=== PATIENT | female | born 1985 ===

== ENCOUNTER 2023-12-17 22:01 | Emergency (ER) | payer MEDICAID, SELFPAY ==
[2023-12-17 22:09] VITALS: BP 114/76; PULSE 90; RESP 16; TEMP 36.5; O2SAT 95; BMI 31.2
--- NOTE | 2023-12-17 22:16 | ED_ITS ---
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 was dx with bowel obstruction. pain in abd. 7/ 10 lower abd. 38-year-old woman presenting to the emergency department with concern of abdominal pain. Sounds to be cramping abdominal pain. This has been going on over the last for 5 days. It sounds like 4 days ago was seen in [facility] Emergency Department and initially left after waiting in the waiting room. Had been trying to treat with MiraLax. Following a very large bowel movement and severe cramping and near syncope was returned via ems to [facility] where CT imaging was done but she is unsure of result. Was discharged home with what sounds like a diagnosis of constipation. Two days ago drove herself to [place] following severe increase in abdominal pain. Received CT imaging and ultrasound. She says was noted to have had a very recently ruptured ovarian cyst but more significant findings apparently of small-bowel obstruction and recommended for admission. After 12 hour wait in the emergency department and persons who were to come collect her dog did not which had been waiting in the car, she left hoping that maybe it would spontaneously resolve. Presents to this emergency department with increase of pain over the last day again. She feels generally bloated. Yesterday had some liquidy stools. Lalitha has passed gas maybe half an hour prior to presentation the Emergency Department. Last vomited a couple of days ago. Did manage to maintained some oral intake of some liquid yogurt about 30 minutes prior to arrival in the emergency department. She does note during evaluation at [place] 2 days ago had rather elevated white count and was given what sounds like IV antibiotics there. She has not had a fever. Only abdominal procedures are 3 C-sections. Currently homeless and had been staying with her cousin briefly in the [facility]. Has been bouncing around she says. <Ignacio Isaac MD - Last Filed: 12/18/23 01:34> Related Data Home medications: Previous Rx's ?Medication ?Instructions ?Recorded amoxicillin 875 mg-potassium 1 tab PO BID #10 tabs 12/18/23 clavulanate 125 mg tablet dicyclomine 20 mg tablet 20 mg PO QID PRN abdominal pain 12/18/23 #20 tabs potassium chloride 20 mEq 20 meq PO DAILY #10 tabs 12/18/23 tablet,extended release(part/cryst) <Ignacio Isaac MD - Last Filed: 12/18/23 01:34> Allergies/adverse reactions: Allergies Allergy/AdvReac Type Severity Reaction Status Date / Time No Known Drug Allergies Allergy Verified 12/17/23 22:13 <Ignacio Isaac MD - Last Filed: 12/18/23 01:34> Review of Systems Status of ROS: Reports: 6 or more systems reviewed and unremarkable except as noted in History and below <Ignacio Isaac MD - Last Filed: 12/18/23 01:34> Exam Narrative: Exam Narrative: Carefully casually groomed. Pleasantly talkative. Small tattoos on extremities. Skin is warm and dry otherwise. Abdomen is full soft. No peritoneal signs. Faint bowel sounds are present. She is most sore to palpation the right lower abdomen. No masses appreciated. Breathing easily with clear lungs. Heart in elevated rate and rhythm. Distant. <Igancio Isaac MD - Last Filed: 12/18/23 01:34> Const: Vital Signs, click to edit/add: Vital Signs - 24 hr 12/17/23 22:09 12/17/23 23:37 12/18/23 00:01 Temperature 97.7 F Pulse Rate 101 H 99 Pulse Rate [Pulse Oximeter] 90 Respiratory Rate 16 16 16 Blood Pressure 119/70 120/72 Blood Pressure [Ri ght Upper Arm] 114/76 Pulse Oximetry 95 99 99 Oxygen Delivery Me thod Room Air Room Air Room Air <Ignacio Isaac MD - Last Filed: 12/18/23 01:34> Vital Signs, click to edit/add: Vital Signs - 24 hr 12/17/23 22:09 12/17/23 23:37 12/18/23 00:01 Temperature 97.7 F Pulse Rate 101 H 99 Pulse Rate [Pulse Oximeter] 90 Respiratory Rate 16 16 16 Blood Pressure 119/70 120/72 Blood Pressure [Ri ght Upper Arm] 114/76 Pulse Oximetry 95 99 99 Oxygen Delivery Me thod Room Air Room Air Room Air <Ronald Steel MD - Last Filed: 12/18/23 02:38> Documenting provider has reviewed patient's vital signs: yes <Ignacio Isaac MD - Last Filed: 12/18/23 01:34> Course Reevaluation(s) Additional Reevaluation(s): 1:32 a.m. 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 Patient left AMA early on December 15. 2:09 a.m. reviewed radiology interpretation CT scan of the abdomen and pelvis which shows some layering sludge in the gallbladder but no evidence for obstruction or enteritis. Given normal white blood cell count today with normal lipase and normal hepatic panel, previously seen ileocolitis appears to be resolved although CRP is still a little elevated. Patient is able to tolerate oral intake, is passing gas in the department, in stable for discharge after potassium replacement is completed. She does have numerous liver nodules which will need outpatient follow-up. 2:34 a.m. patient recheck, tolerating oral intake and passing gas in the emergency department. She is agreeable to discharge with Bentyl to help with abdominal pain and cramping, liquid diet. She has Colace at home that she will start taking and will also start potassium replacement, follow-up with primary care. Given still elevated CRP and findings of ileocolitis on prior CT which seems to be improved either just with time with antibiotics, patient will be started on short course of Augmentin as well. <Ronald Steel MD - Last Filed: 12/18/23 02:38> Vital Signs Vital signs: Initial Vital Signs Temperature 97.7 F 12/17/23 22:09 Temperature Source Temporal Artery Scan 12/17/23 22:09 Pulse Rate 90 12/17/23 22:09 Respiratory Rate 16 12/17/23 22:09 Blood Pressure 114/76 12/17/23 22:09 Blood Pressure Mean 88 12/17/23 22:09 Blood Pressure Position Sitting 12/17/23 22:09 Pulse Oximetry 95 12/17/23 22:09 Oxygen Delivery Method Room Air 12/17/23 22:09 Vital Signs Temperature 97.7 F 12/17/23 22:09 Pulse Rate 90 12/17/23 22:09 Respiratory Rate 16 12/17/23 22:09 Blood Pressure 114/76 12/17/23 22:09 Pulse Oximetry 95 12/17/23 22:09 Oxygen Delivery Method Room Air 12/17/23 22:09 Temperature 97.7 F 12/17/23 22:09 Pulse Rate 99 12/18/23 00:01 Respiratory Rate 16 12/18/23 00:01 Blood Pressure 120/72 12/18/23 00:01 Pulse Oximetry 99 12/18/23 00:01 Oxygen Delivery Method Room Air 12/18/23 00:01 <Ignacio Isaac MD - Last Filed: 12/18/23 01:34> Initial Vital Signs Temperature 97.7 F 12/17/23 22:09 Temperature Source Temporal Artery Scan 12/17/23 22:09 Pulse Rate 90 12/17/23 22:09 Respiratory Rate 16 12/17/23 22:09 Blood Pressure 114/76 12/17/23 22:09 Blood Pressure Mean 88 12/17/23 22:09 Blood Pressure Position Sitting 12/17/23 22:09 Pulse Oximetry 95 12/17/23 22:09 Oxygen Delivery Method Room Air 12/17/23 22:09 Vital Signs Temperature 97.7 F 12/17/23 22:09 Pulse Rate 90 12/17/23 22:09 Respiratory Rate 16 12/17/23 22:09 Blood Pressure 114/76 12/17/23 22:09 Pulse Oximetry 95 12/17/23 22:09 Oxygen Delivery Method Room Air 12/17/23 22:09 Temperature 97.7 F 12/17/23 22:09 Pulse Rate 99 12/18/23 00:01 Respiratory Rate 16 12/18/23 00:01 Blood Pressure 120/72 12/18/23 00:01 Pulse Oximetry 99 12/18/23 00:01 Oxygen Delivery Method Room Air 12/18/23 00:01 <Ronald Steel MD - Last Filed: 12/18/23 02:38> Medications Administered Medications: Generic Name Dose Route Start Last Admin Trade Name Freq PRN Reason Stop Dose Admin Potassium Chloride 10 meq in 100 mls @ 100 mls/hr 12/18/23 01:15 12/18/23 01:38 Potassium Chloride IVPB 12/18/23 03:44 100 mls/hr Q90M LANEY Administration Discontinued Medications Generic Name Dose Route Start Last Admin Trade Name Freq PRN Reason Stop Dose Admin Sodium Chloride 1,000 mls @ 1,000 mls/hr 12/17/23 22:43 12/18/23 00:29 0.9 % Sodium Chloride 1000 Ml IV 12/17/23 23:42 Infused .Q1H ONE Infusion Lactated Ringer's 1,000 mls @ 1,000 mls/hr 12/18/23 01:08 12/18/23 01:38 Lactated Ringers 1000 Ml IV 12/18/23 02:07 1,000 mls/hr .Q1H ONE Administration Ketorolac Tromethamine 30 mg 12/18/23 01:39 12/18/23 01:59 Ketorolac 30 Mg/Ml Inj IVP 12/18/23 01:40 30 mg ONCE ONE Administration <Ignacio Isaac MD - Last Filed: 12/18/23 01:34> Generic Name Dose Route Start Last Admin Trade Name Kentonq PRN Reason Stop Dose Admin Potassium Chloride 10 meq in 100 mls @ 100 mls/hr 12/18/23 01:15 12/18/23 01:38 Potassium Chloride IVPB 12/18/23 03:44 100 mls/hr Q90M LANEY Administration Discontinued Medications Generic Name Dose Route Start Last Admin Trade Name Kentonq PRN Reason Stop Dose Admin Sodium Chloride 1,000 mls @ 1,000 mls/hr 12/17/23 22:43 12/18/23 00:29 0.9 % Sodium Chloride 1000 Ml IV 12/17/23 23:42 Infused .Q1H ONE Infusion Lactated Ringer's 1,000 mls @ 1,000 mls/hr 12/18/23 01:08 12/18/23 01:38 Lactated Ringers 1000 Ml IV 12/18/23 02:07 1,000 mls/hr .Q1H ONE Administration Ketorolac Tromethamine 30 mg 12/18/23 01:39 07/23/24 01:59 Ketorolac 30 Mg/Ml Inj IVP 12/18/23 01:40 30 mg ONCE ONE Administration <Ronald Steel MD - Last Filed: 12/18/23 02:38> Medical Decision Making MDM Narrative Medical decision making narrative: Would like to get information from recent evaluations. Sounds as though per description of diagnoses has been constipated progressing to a small-bowel or partial small-bowel obstruction. Incidental finding of elevated white count per her report. Given what she is saying I wonder if possibly hemorrhagic ovarian cyst rupture exacerbated underlying pain as well. Would like to repeat labs and at least do two view abdomen. Initiate IV IV fluids. Try to obtain records. Abdominal x-ray reviewed by me with dilated loops of small bowel and air-fluid levels. Large amount of stool in the right colon. Looks like small-bowel obstruction. Reports recent bowel obstruction, increasing abdominal pain. COMPARISON: None available. TECHNIQUE: Abdomen 2 view. FINDINGS: There are a few dilated small bowel loops in the left abdomen measuring up to 4.2 cm in diameter. Findings are suspicious for obstruction. Large amount of stool in the ascending colon. No free air under the hemidiaphragms. The lung bases are clear. The bones are unremarkable. IMPRESSION: Dilated small bowel loops in the left abdomen suspicious for obstruction. Has labs come back we see a hemoglobin of 9.5. Discussing this with Lalitha she does note that she has been chronically anemic; ever since she had children she says. White count per her report has now normalized CRP is markedly elevated at 23. I have managed to obtain imaging records dated 12/15/2019 from the [place] emergency department. Impression is fluid-filled loops of small bowel with transition point deep in the anterior pelvis. There were some distal small bowel loops with mild wall thickening with concern of potentially infectious or inflammatory etiology. Distal small bowel loops are demonstrating wall thickening the level of the ile ocecal valve. Colonic ileus probable as well. Collapsing right adnexal cyst with increase in pelvic free fluid. Also was noted to have multiple new low- attenuation lesions in the liver. Also had an ultrasound both transabdominal and transvaginal done which showed absence of ovarian torsion and trace. Adnexa mildly complex free fluid possibly secondary to blood products from hemorrhagic cyst/follicle. Will be returning for noncontrast CT imaging since this was just done however with the noted suspicion of infection or inflammatory changes I think warrants at least noncontrast CT imaging the abdomen pelvis. I would anticipate admission for further bowel rest. Images pending. Replacing potassium Will be handing off at change of shift. <Ignacio Isaac MD - Last Filed: 12/18/23 01:34> Medical Records Medical records reviewed: Yes I reviewed the patient's medical records <Ignacio Isaac MD - Last Filed: 12/18/23 01:34> Lab Data Lab results reviewed: Yes I reviewed the patient's lab results <Ignacio Isaac MD - Last Filed: 12/18/23 01:34> Labs: Lab Results 12/17/23 12/18/23 12/18/23 Range/Units 22:59 00:08 00:10 WBC 5.65 (4.50-11.00) K/uL RBC 3.40 L (4.00-5.20) m/uL Hgb 9.5 L (12.0-16.0) gm/dL Hct 29.0 L (33.0-51.0) % MCV 85 (80-100) fL MCH 28 (26-34) pg MCHC 33 (32-36) gm/dL RDW Coeff of Nakia 13.7 (11.5-15.5) % Plt Count 189 (140-440) K/uL Neut % (Auto) 57.5 (42.0-72.0) % Lymph % (Auto) 24.8 (20-44) % [place] % (Auto) 13.6 H (0.0-11.0) % Eos % (Auto) 3.2 (0.0-7.0) % Baso % (Auto) 0.2 (0.0-3.0) % Neut # (Auto) 3.25 (1.7-7.0) K/uL Lymph # (Auto) 1.40 (0.90-2.90) K/uL [place] # (Auto) 0.80 (0.00-0.90) K/UL Eos # (Auto) 0.18 (0.00-0.50) K/uL Baso # (Auto) 0.01 (0.00-0.30) K/uL Abs Immat Gran (auto) 0.04 (0.00-0.30) K/uL Imm/Tot Granulo (auto) 0.7 % Sodium 137 (135-149) mmol/L Potassium 2.8 L* (3.6-5.1) mmol/L Chloride 106 (96-114) mmol/L Carbon Dioxide 25 (20-32) mmol/L Anion Gap 6 L (7-15) mEq/L BUN 5 (5-24) mg/dL Creatinine 0.6 (0.5-1.5) mg/dL Estimated Creat Clear 129.50 Estimated GFR 118 ml/min Glucose 100 (60-115) mg/dL Calcium 7.9 L (8.4-10.6) mg/dL Magnesium 2.2 (1.5-2.6) mg/dL Total Bilirubin 0.4 (0.1-1.5) mg/dL Direct Bilirubin 0.3 (0.0-0.5) mg/dL AST 34 (12-35) U/L ALT 34 (4-35) U/L Alkaline Phosphatase 107 (40-150) U/L C-Reactive Protein 23.0 H (0.5-1.0) mg/dL Total Protein 6.3 (6.0-8.3) g/dL Albumin 3.2 L (3.3-5.0) g/dL Lipase 59 (23-300) U/L Urine Color Yellow (Yellow) Urine Appearance Clear (Clear) Urine pH 7.0 (5.0-8.5) Ur Specific [place] 1.010 (1.000-1.030) Urine Protein Negative (Negative) Urine Glucose (UA) Negative (Negative) Urine Ketones Negative (Negative) Urine Blood Trace-intact A (Negative) Urine Nitrite Negative (Negative) Urine Bilirubin Negative (Negative) Urine Urobilinogen 0.2 (0.2-1.0) Ur Leukocyte Esterase Negative (Negative) Urine RBC 0-2 (0-2) Urine WBC 0-2 (0-5) Ur Squamous Epith Cells Few (None-Few) Urine Bacteria None (None) Lab Acknowledgement Test Added <Ignacio Isaac MD - Last Filed: 12/18/23 01:34> Lab Results 12/17/23 12/18/23 12/18/23 Range/Units 22:59 00:08 00:10 WBC 5.65 (4.50-11.00) K/uL RBC 3.40 L (4.00-5.20) m/uL Hgb 9.5 L (12.0-16.0) gm/dL Hct 29.0 L (33.0-51.0) % MCV 85 (80-100) fL MCH 28 (26-34) pg MCHC 33 (32-36) gm/dL RDW Coeff of Nakia 13.7 (11.5-15.5) % Plt Count 189 (140-440) K/uL Neut % (Auto) 57.5 (42.0-72.0) % Lymph % (Auto) 24.8 (20-44) % [place] % (Auto) 13.6 H (0.0-11.0) % Eos % (Auto) 3.2 (0.0-7.0) % Baso % (Auto) 0.2 (0.0-3.0) % Neut # (Auto) 3.25 (1.7-7.0) K/uL Lymph # (Auto) 1.40 (0.90-2.90) K/uL [place] # (Auto) 0.80 (0.00-0.90) K/UL Eos # (Auto) 0.18 (0.00-0.50) K/uL Baso # (Auto) 0.01 (0.00-0.30) K/uL Abs Immat Gran (auto) 0.04 (0.00-0.30) K/uL Imm/Tot Granulo (auto) 0.7 % Sodium 137 (135-149) mmol/L Potassium 2.8 L* (3.6-5.1) mmol/L Chloride 106 (96-114) mmol/L Carbon Dioxide 25 (20-32) mmol/L Anion Gap 6 L (7-15) mEq/L BUN 5 (5-24) mg/dL Creatinine 0.6 (0.5-1.5) mg/dL Estimated Creat Clear 129.50 Estimated GFR 118 ml/min Glucose 100 (60-115) mg/dL Calcium 7.9 L (8.4-10.6) mg/dL Magnesium 2.2 (1.5-2.6) mg/dL Total Bilirubin 0.4 (0.1-1.5) mg/dL Direct Bilirubin 0.3 (0.0-0.5) mg/dL AST 34 (12-35) U/L ALT 34 (4-35) U/L Alkaline Phosphatase 107 (40-150) U/L C-Reactive Protein 23.0 H (0.5-1.0) mg/dL Total Protein 6.3 (6.0-8.3) g/dL Albumin 3.2 L (3.3-5.0) g/dL Lipase 59 (23-300) U/L Urine Color Yellow (Yellow) Urine Appearance Clear (Clear) Urine pH 7.0 (5.0-8.5) Ur Specific [place] 1.010 (1.000-1.030) Urine Protein Negative (Negative) Urine Glucose (UA) Negative (Negative) Urine Ketones Negative (Negative) Urine Blood Trace-intact A (Negative) Urine Nitrite Negative (Negative) Urine Bilirubin Negative (Negative) Urine Urobilinogen 0.2 (0.2-1.0) Ur Leukocyte Esterase Negative (Negative) Urine RBC 0-2 (0-2) Urine WBC 0-2 (0-5) Ur Squamous Epith Cells Few (None-Few) Urine Bacteria None (None) Lab Acknowledgement Test Added <Ronald Steel MD - Last Filed: 12/18/23 02:38> Discharge Plan Discharge Clinical Impression: Hypokalemia, Liver lesion, Abdominal pain, Ileocolitis <Ignacio Isaac MD - Last Filed: 12/18/23 01:34> Patient Disposition: Home, Self-Care <Ignacio Isaac MD - Last Filed: 12/18/23 01:34> Condition: Stable <Ignacio Isaac MD - Last Filed: 12/18/23 01:34> Instructions: Abdominal Pain (ED) <Ignacio Isaac MD - Last Filed: 12/18/23 01:34> Additional Instructions: Liquid diet for 24 hours Follow-up with your primary care provider for further imaging for liver nodules <Ignacio Isaac MD - Last Filed: 12/18/23 01:34> Activity Level: Activity as Tolerated <Ignacio Isaac MD - Last Filed: 12/18/23 01:34> Activity as Tolerated <Ronald Steel MD - Last Filed: 12/18/23 02:38> Discharge Diet: Full Liquid <Ignacio Isaac MD - Last Filed: 12/18/23 01:34> Full Liquid <Ronald Steel MD - Last Filed: 12/18/23 02:38> Prescriptions: New dicyclomine 20 mg tablet 20 mg PO QID PRN (Reason: abdominal pain) Qty: 20 0RF potassium chloride 20 mEq tablet,ER particles/crystals 20 meq PO DAILY Qty: 10 0RF amoxicillin-pot clavulanate 875-125 mg tablet 1 tab PO BID Qty: 10 0RF <Ignacio Isaac MD - Last Filed: 12/18/23 01:34> Follow Up/Referrals: Provider,Not a Local [Primary Care Provider] - <Ignacio Isaac MD - Last Filed: 12/18/23 01:34> Stand Alone Forms: MyHealth Info Instructions <Ignacio Isaac MD - Last Filed: 12/18/23 01:34>
--- NOTE | 2023-12-17 22:43 | CRLHL7_ITS ---
For Patients: As a result of the Century Cures Act, medical imaging exams and procedure reports are released immediately into your electronic medical record. You may view this report before your referring provider. If you have questions, please contact your health care provider. INDICATION: Reports recent bowel obstruction, increasing abdominal pain. COMPARISON: None available. TECHNIQUE: Abdomen 2 view. FINDINGS: There are a few dilated small bowel loops in the left abdomen measuring up to 4.2 cm in diameter. Findings are suspicious for obstruction. Large amount of stool in the ascending colon. No free air under the hemidiaphragms. The lung bases are clear. The bones are unremarkable. IMPRESSION: Dilated small bowel loops in the left abdomen suspicious for obstruction. Dictated by Nancy Patel MD @ 12/17/2023 11:30:16 PM (Electronically Signed)
[2023-12-17 23:15] LABS: Basophils Absolute Auto 0.01 K/uL (0.00-0.30); Basophils Percent Auto 0.2 % (0.0-3.0); Eosinophils Absolute Auto 0.18 K/uL (0.00-0.50); Eosinophils Percent Auto 3.2 % (0.0-7.0); Hemoglobin* 9.5 gm/dL (12.0-16.0); Immature Granulocytes Abs Auto 0.04 K/uL (0.00-0.30); Immature Granulocytes Pct Auto 0.7 %; Lymphocytes Percent Auto 24.8 % (20-44); Mean Corpuscular HGB Conc 33 gm/dL (32-36); Mean Corpuscular Hemoglobin 28 pg (26-34); Mean Corpuscular Volume 85 fL (80-100); Monocytes Percent Auto 13.6 % (0.0-11.0); Neutrophils Absolute Auto 3.25 K/uL (1.7-7.0); Neutrophils Percent Auto 57.5 % (42.0-72.0); Platelet Count* 189 K/uL (140-440); RDW Coefficient of Variation % 13.7 % (11.5-15.5); White Blood Count* 5.65 K/uL (4.50-11.00)
[2023-12-17 23:16] LABS: Slide Review Reflex No
[2023-12-17 23:28] LABS: Chloride* 106 mmol/L (96-114)
[2023-12-17 23:29] LABS: Albumin* 3.2 g/dL (3.3-5.0); Sodium* 137 mmol/L (135-149)
[2023-12-17 23:31] LABS: Creatinine* 0.6 mg/dL (0.5-1.5); Estimated Glomerular Filt Rate 118 ml/min
[2023-12-17 23:32] LABS: Alkaline Phosphatase* 107 U/L (40-150); Anion Gap 6 mEq/L (7-15); Aspartate Amino Transferase* 34 U/L (12-35); Bilirubin Direct* 0.3 mg/dL (0.0-0.5); Bilirubin Total* 0.4 mg/dL (0.1-1.5); Blood Urea Nitrogen* 5 mg/dL (5-24); Calcium* 7.9 mg/dL (8.4-10.6); Carbon Dioxide* 25 mmol/L (20-32); Glucose* 100 mg/dL (60-115); Lipase* 59 U/L (23-300); Total Protein* 6.3 g/dL (6.0-8.3)
[2023-12-17] MEDS: 0.9 % SODIUM CHLORIDE 1000 ml 1,000 ML IV (23:32)
[2023-12-17 23:33] LABS: Alanine Aminotransferase* 34 U/L (4-35); Potassium* 2.8 mmol/L (3.6-5.1)
[2023-12-17 23:37] VITALS: BP 119/70; PULSE 101; RESP 16; O2SAT 99
[2023-12-18] VITALS (7 sets, daily range): BP systolic 109–120; BP diastolic 63–72; PULSE 85–100; RESP 14–16; O2SAT 99–100
--- NOTE | 2023-12-18 | CRLHL7_ITS ---
For Patients: As a result of the Century Cures Act, medical imaging exams and procedure reports are released immediately into your electronic medical record. You may view this report before your referring provider. If you have questions, please contact your health care provider. INDICATION: Abdominal distension and pain TECHNIQUE: CT Abdomen and pelvis without i.v. contrast. Coronal and sagittal reformats were obtained. COMPARISON: 12/17/2023 FINDINGS: Lower chest: Mild right lower lobe discoid atelectasis is present. Liver: Several hypodense liver lesions are present measuring up to 12 mm. These are incompletely characterized without the use of intravenous contrast. Spleen: Unremarkable. Pancreas: Unremarkable. Gallbladder: Faint layering densities are present within the gallbladder which may be due to sludge or noncalcified gallstones. Kidney: Unremarkable. No kidney or ureteral stones or obstruction seen. Adrenal: Unremarkable. Bowel: Mild gaseous distention of the sigmoid colon is seen. The appendix is normal in appearance and size. Vascular: Unremarkable. Lymph: Unremarkable. Peritoneum: Unremarkable. No pneumoperitoneum is seen. Trace amount of ascites is present and is likely physiologic in origin. Pelvis: Unremarkable. Soft tissue: Unremarkable. Bone: Unremarkable for age. IMPRESSION: 1. Faint layering densities are present within the gallbladder which may be due to sludge or noncalcified gallstones. Dictated by Cam Garcia MD @ 12/18/2023 2:02:45 AM Please note that all CT scans at this facility use dose modulation, iterative reconstruction, and/or weight-based dosing when appropriate to reduce radiation dose to as low as reasonably achievable. Dictated by: Cam Garcia MD @ 12/18/2023 02:02:50 (Electronically Signed)
[2023-12-18 00:29] LABS: Appearance Urine Clear (Clear); Bilirubin Urine Negative (Negative); Blood Urine Trace-intact (Negative); Color Urine Yellow (Yellow); Glucose Urine Negative (Negative); Ketones Urine Negative (Negative); Leukocyte Esterase Urine Negative (Negative); Nitrite Urine Negative (Negative); Protein Urine Negative (Negative); Urobilinogen Urine 0.2 (0.2-1.0)
[2023-12-18 00:32] LABS: Magnesium* 2.2 mg/dL (1.5-2.6)
[2023-12-18 00:36] LABS: RBC Urine 0-2 (0-2); Squamous Epithelial Cell Urine Few (None-Few); WBC Urine 0-2 (0-5)
[2023-12-18] MEDS: LACTATED RINGERS 1000 ML 1,000 ML IV (01:38)
[2023-12-18] MEDS: POTASSIUM CHLORIDE 10 MEQ/100 ML PIGGYBACK 100 MEQ IVPB ×2 (01:38→02:52)
[2023-12-18] MEDS: KETOROLAC 30 MG/ML inj IVP (01:59)
== END 2023-12-18 03:50 | disposition home or self-care (01) ==
PROVIDERS: Emergency Provider Family Medicine
DX: E87.6 Hypokalemia (principal); K76.9 Liver disease, unspecified; K52.9 Noninfective gastroenteritis and colitis, unspecified
CPT/HCPCS: 36415; 74019; 74176; 80048; 80076; 81001; 83690; 83735; 85025; 86140; 96365; 96375; 99284; 99285; J1885; J3480; J7030; J7120